=== PATIENT | male | born 1970 | race Caucasian/White ===

== ENCOUNTER 2017-10-04 16:32 | Inpatient (IN) | payer OTHER ==
[~2017-10-04] VITALS: Ht 172.7 cm; Wt 106.1 kg
[~2017-10-04 16:32] MED LIST: BENTYL20 MG PO; Norco 5-325 Ta1 EACH PO; Prilosec20 MG PO; Prilosec40 MG PO; SUCR1 PO
[2017-10-04 17:04] LABS: BASOPHILS ABSOLUTE AUTO 0.07 K/mm3 (0.00-0.23); BASOPHILS PERCENT AUTO 0 % (0-2); EOSINOPHILS ABSOLUTE AUTO 0.11 K/mm3 (0.00-0.68); EOSINOPHILS PERCENT AUTO 1 % (0-6); Hematocrit 50.1 % (37.0-53.0); Hemoglobin 17.5 g/dL (13.5-17.5); IMMATURE GRAN ABSOLUTE AUTO 0.07 K/mm3 (0.00-0.10); IMMATURE GRAN PERCENT AUTO 0 % (0-1); LYMPHOCYTES ABSOLUTE AUTO 1.76 K/mm3 (0.84-5.20); LYMPHOCYTES PERCENT AUTO 11 % (21-46); MONOCYTES ABSOLUTE AUTO 1.14 K/mm3 (0.16-1.47); MONOCYTES PERCENT AUTO 7 % (4-13); Mean Corpuscular HGB 32.7 pg (26.0-34.0); Mean Corpuscular HGB Conc 34.9 g/dL (31.5-36.5); Mean Corpuscular Volume 94 fL (80-100); Mean Platelet Volume 9.2 fL (9.1-12.4); NEUTROPHILS ABSOLUTE AUTO 12.53 K/mm3 (1.96-9.15); NEUTROPHILS PERCENT AUTO 80 % (41-73); Platelet Count 245 K/mm3 (150-400); RDW Coefficient Variation 14.2 % (11.7-14.2); RDW Standard Deviation 49.1 fL (35.1-46.3); Red Blood Cell Count 5.35 M/mm3 (4.30-5.90); White Blood Cell Count 15.68 K/mm3 (4.00-11.30)
[2017-10-04 17:26] LABS: Alanine Aminotransfer (ALT/SGP 26 U/L (12-78); Albumin, Blood 4.3 g/dL (3.4-5.0); Albumin/Globulin Ratio 1.2 (0.8-1.8); Alk Phos 92 U/L (50-136); Anion Gap 13 mmol/L (6-16); Aspartate Aminotrans (AST/SGOT 28 U/L (12-37); Bilirubin, Total 1.3 mg/dL (0.1-1.0); Blood Urea Nitrogen 10 mg/dL (8-24); CO2, Blood 21 mmol/L (21-32); Calcium, Blood 9.1 mg/dL (8.5-10.1); Chloride, Blood 103 mmol/L (98-108); Creatinine, Blood 0.91 mg/dL (0.60-1.20); Globulin, Blood 3.6 g/dL (2.2-4.0); Glomerular Filtration Rate >60 (60-); Glucose, Blood 164 mg/dL (70-99); Potassium, Blood 3.7 mmol/L (3.5-5.5); Sodium, Blood 137 mmol/L (136-145); Total Protein, Blood 7.9 g/dL (6.4-8.2); Troponin I <0.015 ng/mL (0.000-0.040)
[2017-10-05] MEDS ORDERED: Omeprazole20 M1 PO (02:53)
[2017-10-05 04:14] LABS: BASOPHILS ABSOLUTE AUTO 0.03 K/mm3 (0.00-0.23); BASOPHILS PERCENT AUTO 0 % (0-2); EOSINOPHILS PERCENT AUTO 0 % (0-6); Hemoglobin 16.3 g/dL (13.5-17.5); IMMATURE GRAN ABSOLUTE AUTO 0.11 K/mm3 (0.00-0.10); IMMATURE GRAN PERCENT AUTO 1 % (0-1); LYMPHOCYTES ABSOLUTE AUTO 0.85 K/mm3 (0.84-5.20); LYMPHOCYTES PERCENT AUTO 5 % (21-46); MONOCYTES ABSOLUTE AUTO 0.91 K/mm3 (0.16-1.47); MONOCYTES PERCENT AUTO 5 % (4-13); Mean Corpuscular HGB 32.4 pg (26.0-34.0); Mean Corpuscular Volume 95 fL (80-100); Mean Platelet Volume 9.9 fL (9.1-12.4); NEUTROPHILS ABSOLUTE AUTO 17.03 K/mm3 (1.96-9.15); NEUTROPHILS PERCENT AUTO 90 % (41-73); Platelet Count 189 K/mm3 (150-400); RDW Coefficient Variation 14.3 % (11.7-14.2); RDW Standard Deviation 49.7 fL (35.1-46.3); Red Blood Cell Count 5.03 M/mm3 (4.30-5.90); White Blood Cell Count 18.93 K/mm3 (4.00-11.30)
[2017-10-05 04:39] LABS: Anion Gap 9 mmol/L (6-16); Blood Urea Nitrogen 11 mg/dL (8-24); Bun/Creatinine Ratio 14.6 (12.0-20.0); CO2, Blood 24 mmol/L (21-32); Calcium, Blood 8.5 mg/dL (8.5-10.1); Chloride, Blood 104 mmol/L (98-108); Creatinine, Blood 0.76 mg/dL (0.60-1.20); Glomerular Filtration Rate >60 (60-); Glucose, Blood 135 mg/dL (70-99); Magnesium, Blood 1.7 mg/dL (1.6-2.4); Phosphorus, Blood 2.5 mg/dL (2.5-4.9); Potassium, Blood 3.7 mmol/L (3.5-5.5); Sodium, Blood 137 mmol/L (136-145)
[2017-10-06 04:31] LABS: Anion Gap 7 mmol/L (6-16); Blood Urea Nitrogen 7 mg/dL (8-24); Bun/Creatinine Ratio 9.7 (12.0-20.0); CO2, Blood 26 mmol/L (21-32); Calcium, Blood 8.2 mg/dL (8.5-10.1); Chloride, Blood 102 mmol/L (98-108); Creatinine, Blood 0.72 mg/dL (0.60-1.20); Glomerular Filtration Rate >60 (60-); Glucose, Blood 89 mg/dL (70-99); Magnesium, Blood 1.4 mg/dL (1.6-2.4); Potassium, Blood 3.5 mmol/L (3.5-5.5); Sodium, Blood 135 mmol/L (136-145)
[2017-10-07 06:49] LABS: BASOPHILS ABSOLUTE AUTO 0.04 K/mm3 (0.00-0.23); BASOPHILS PERCENT AUTO 0 % (0-2); EOSINOPHILS ABSOLUTE AUTO 0.09 K/mm3 (0.00-0.68); EOSINOPHILS PERCENT AUTO 1 % (0-6); Hematocrit 39.9 % (37.0-53.0); Hemoglobin 13.7 g/dL (13.5-17.5); IMMATURE GRAN ABSOLUTE AUTO 0.13 K/mm3 (0.00-0.10); IMMATURE GRAN PERCENT AUTO 1 % (0-1); LYMPHOCYTES ABSOLUTE AUTO 0.87 K/mm3 (0.84-5.20); LYMPHOCYTES PERCENT AUTO 6 % (21-46); MONOCYTES ABSOLUTE AUTO 1.12 K/mm3 (0.16-1.47); MONOCYTES PERCENT AUTO 8 % (4-13); Mean Corpuscular HGB 33.7 pg (26.0-34.0); Mean Corpuscular HGB Conc 34.3 g/dL (31.5-36.5); Mean Platelet Volume 10.1 fL (9.1-12.4); NEUTROPHILS ABSOLUTE AUTO 11.26 K/mm3 (1.96-9.15); NEUTROPHILS PERCENT AUTO 83 % (41-73); Platelet Count 151 K/mm3 (150-400); RDW Coefficient Variation 14.4 % (11.7-14.2); RDW Standard Deviation 52.2 fL (35.1-46.3); Red Blood Cell Count 4.06 M/mm3 (4.30-5.90); White Blood Cell Count 13.51 K/mm3 (4.00-11.30)
[2017-10-07 07:04] LABS: Anion Gap 6 mmol/L (6-16); Blood Urea Nitrogen 6 mg/dL (8-24); CO2, Blood 29 mmol/L (21-32); Calcium, Blood 8.6 mg/dL (8.5-10.1); Chloride, Blood 99 mmol/L (98-108); Creatinine, Blood 0.75 mg/dL (0.60-1.20); Glomerular Filtration Rate >60 (60-); Glucose, Blood 87 mg/dL (70-99); Magnesium, Blood 2.2 mg/dL (1.6-2.4); Mean Corpuscular Volume 98 fL (80-100); Potassium, Blood 3.6 mmol/L (3.5-5.5); Sodium, Blood 134 mmol/L (136-145)
[2017-10-08 06:25] LABS: Anion Gap 9 mmol/L (6-16); Blood Urea Nitrogen 10 mg/dL (8-24); Bun/Creatinine Ratio 12.5 (12.0-20.0); CO2, Blood 27 mmol/L (21-32); Chloride, Blood 100 mmol/L (98-108); Glomerular Filtration Rate >60 (60-); Glucose, Blood 122 mg/dL (70-99); Potassium, Blood 3.3 mmol/L (3.5-5.5); Sodium, Blood 136 mmol/L (136-145)
[2017-10-08] MEDS ORDERED: Percocet 5-3251 EACH PO (10:03)
== END 2017-10-08 11:19 | disposition home or self-care (01) | DRG 440 ==
LOC: ER 16:32 → PCU 16:33 → MEDS 20:45 → PCU 10-06 08:52 → MEDS 10-06 12:30 → ENPENDDIS 10-08 09:30 → MEDS 10-08 11:19
PROVIDERS: Hospitalist; Internal Medicine
DX: K85.20 Alcohol induced acute pancreatitis without necrosis or infection (principal); K21.9 Gastro-esophageal reflux disease without esophagitis; F10.10 Alcohol abuse, uncomplicated; R60.9 Edema, unspecified; R07.9 Chest pain, unspecified; E66.8 Other obesity; Z68.34 Body mass index [BMI] 34.0-34.9, adult; F17.200 Nicotine dependence, unspecified, uncomplicated; Z88.5 Allergy status to narcotic agent
CPT/HCPCS: 36415; 71046; 80048; 80053; 83690; 83735; 84100; 84484; 85025; 93005; 93010; 94762; 96374; 96375; 96376; 99285; C9113; J0360; J1200; J1650; J1940; J2270; J2405; J3010; J3475; J7030; J7120

== ENCOUNTER 2020-07-16 07:44 | Day surgery (SDC) | payer OTHER ==
[~2020-07-16] VITALS: Ht 172.7 cm; Wt 87.5 kg
[~2020-07-16 07:44] MED LIST changes: +IBUP800 PO; +ONDA4ODT MM; +Omeprazole20 M1 PO; +Percocet 5-3251 EACH PO
[2020-07-16] MEDS ORDERED: Norco 10-325 T1 EACH PO (08:15)
[2020-07-16] MEDS ORDERED: DEXA4 PO (08:17)
--- NOTE | 2020-07-16 08:34 | NUR ---
Ambulatory in Day Surgery History, Chart, Medications and Allergies reviewed before start of procedure.Lungs clear T/O to Auscultation. Patient confirms NPO status and agrees with scheduled surgery. Pre-Op teaching done. Pt verbalizes understanding.
--- NOTE | 2020-07-16 08:36 | NUR ---
AUDIBLE WHEEZES ON LEFT UPPER AND LOWER LOBES UPON AUSCULTATION
--- NOTE | 2020-07-16 12:03 | NUR ---
Patient up to Ambulate independently. Gait steady. Dressing to procedure site clean, dry, intact with no visible drainage, swelling, erythema or bruising noted. Discharge instructions reviewed with patient. Patient verbalizes understanding. Copy given to patient to take home. Patient States Post-Procedure ride home has been arranged. Discharged via wheelchair to private car for ride home.
== END 2020-07-16 12:02 | disposition home or self-care (01) ==
LOC: ORSCMMR 07:44 → ORD 09:15 → ORSCMMR 12:02
PROVIDERS: Surgery
PROC: 05HM33Z Insertion of Infusion Device into Right Internal Jugular Vein, Percutaneous Approach (ICD-10-PCS; principal; 2020-07-16 09:15)
PROC: B543ZZA Ultrasonography of Right Jugular Veins, Guidance (ICD-10-PCS; principal; 2020-07-16 09:15)
DX: C09.9 Malignant neoplasm of tonsil, unspecified (principal); C77.9 Secondary and unspecified malignant neoplasm of lymph node, unspecified; F17.210 Nicotine dependence, cigarettes, uncomplicated; Z79.899 Other long term (current) drug therapy
CPT/HCPCS: 77001; C1788; J0690; J1100; J1642; J1885; J2250; J2405; J2704; J3010; J7120

== ENCOUNTER 2020-07-22 09:46 | Day surgery (SDC) | payer OTHER ==
[~2020-07-22 09:46] MED LIST changes: +DEXA4 PO; +Norco 10-325 T1 EACH PO
== END 2020-07-22 11:15 | disposition home or self-care (01) ==
LOC: ATC 09:46
DX: C09.9 Malignant neoplasm of tonsil, unspecified (principal); C77.0 Secondary and unspecified malignant neoplasm of lymph nodes of head, face and neck; I10 Essential (primary) hypertension; F17.200 Nicotine dependence, unspecified, uncomplicated
CPT/HCPCS: 96523; J1642

== ENCOUNTER 2020-08-29 10:44 | Day surgery (SDC) | payer OTHER ==
[~2020-08-29] VITALS: Ht 172.7 cm; Wt 79.5 kg
[2020-08-29] MEDS ORDERED: NAPR220 (11:04)
== END 2020-08-29 13:13 | disposition home or self-care (01) ==
LOC: ORSCSDS 10:44
PROVIDERS: Surgery
PROC: 0DH63UZ Insertion of Feeding Device into Stomach, Percutaneous Approach (ICD-10-PCS; principal; 2020-08-29 12:00)
DX: C09.9 Malignant neoplasm of tonsil, unspecified (principal); R13.14 Dysphagia, pharyngoesophageal phase; K21.9 Gastro-esophageal reflux disease without esophagitis; K29.70 Gastritis, unspecified, without bleeding; F17.210 Nicotine dependence, cigarettes, uncomplicated; K86.1 Other chronic pancreatitis; Z79.899 Other long term (current) drug therapy
CPT/HCPCS: C1769; J2704; J3010; J7120

== ENCOUNTER 2020-12-18 16:53 | Emergency (ER) | payer OTHER | END 2020-12-18 20:05 | disposition short-term general hospital (02) | LOC: ER 16:53 | DX: C76.0 Malignant neoplasm of head, face and neck (principal); R58 Hemorrhage, not elsewhere classified; I10 Essential (primary) hypertension; F17.210 Nicotine dependence, cigarettes, uncomplicated; Z88.5 Allergy status to narcotic agent ==

== ENCOUNTER 2020-12-31 13:29 | Emergency (ER) | payer OTHER ==
[~2020-12-31] VITALS: Ht 172.7 cm; Wt 68.0 kg
[~2020-12-31 13:29] MED LIST changes: +NAPR220
== END 2020-12-31 15:56 | disposition home or self-care (01) ==
LOC: ER 13:29 → EDBD 13:29 → ER 15:56
DX: J95.03 Malfunction of tracheostomy stoma (principal); Z87.891 Personal history of nicotine dependence; Y83.3 Surgical operation with formation of external stoma as the cause of abnormal reaction of the patient, or of later complication, without mention of misadventure at the time of the procedure
CPT/HCPCS: 31720; 71046; 99285-25

== ENCOUNTER 2021-01-02 11:07 | Emergency (ER) | payer OTHER ==
[~2021-01-02] VITALS: Ht 167.6 cm; Wt 56.7 kg
[2021-01-02] MEDS ORDERED: ONDA4ODT MM (12:11)
== END 2021-01-02 12:32 | disposition home or self-care (01) ==
LOC: ER 11:07
DX: J95.03 Malfunction of tracheostomy stoma (principal); R11.2 Nausea with vomiting, unspecified; Z85.89 Personal history of malignant neoplasm of other organs and systems; Z88.5 Allergy status to narcotic agent; Y83.3 Surgical operation with formation of external stoma as the cause of abnormal reaction of the patient, or of later complication, without mention of misadventure at the time of the procedure
CPT/HCPCS: 31720; 99283-25; A9270

== ENCOUNTER 2021-01-05 06:24 | Emergency (ER) | payer OTHER ==
[~2021-01-05] VITALS: Ht 172.7 cm; Wt 68.0 kg
== END 2021-01-05 07:21 | disposition left against medical advice (07) ==
LOC: ER 06:24
DX: Z53.21 Procedure and treatment not carried out due to patient leaving prior to being seen by health care provider (principal)

== ENCOUNTER 2021-01-05 14:49 | Inpatient (IN) | payer OTHER ==
[~2021-01-05] VITALS: Ht 177.8 cm; Wt 63.5 kg
[2021-01-05 19:20] LABS: Alanine Aminotransfer (ALT/SGP 17 U/L (12-78); Albumin, Blood 2.1 g/dL (3.4-5.0); Albumin/Globulin Ratio 0.5 (0.8-1.8); Alk Phos 119 U/L (50-136); Anion Gap 7 mmol/L (6-16); Aspartate Aminotrans (AST/SGOT 21 U/L (12-37); Bilirubin, Total 0.6 mg/dL (0.1-1.0); Blood Urea Nitrogen 16 mg/dL (8-24); Bun/Creatinine Ratio 31.9 (12.0-20.0); CO2, Blood 30 mmol/L (21-32); Calcium, Blood 8.9 mg/dL (8.5-10.1); Chloride, Blood 97 mmol/L (98-108); Globulin, Blood 4.3 g/dL (2.2-4.0); Glomerular Filtration Rate >60 (60-); Glucose, Blood 109 mg/dL (70-99); Potassium, Blood 3.5 mmol/L (3.5-5.5); Sodium, Blood 134 mmol/L (136-145); Total Protein, Blood 6.4 g/dL (6.4-8.2)
[2021-01-05 20:17] LABS: Hematocrit 25.2 % (37.0-53.0); Hemoglobin 8.2 g/dL (13.5-17.5); Mean Corpuscular HGB 31.2 pg (26.0-34.0); Mean Corpuscular HGB Conc 32.5 g/dL (31.5-36.5); Mean Corpuscular Volume 96 fL (80-100); Mean Platelet Volume 9.3 fL (9.1-12.4); Platelet Count 332 K/mm3 (150-400); RDW Coefficient Variation 16.6 % (11.7-14.2); RDW Standard Deviation 57.5 fL (35.1-46.3); Red Blood Cell Count 2.63 M/mm3 (4.30-5.90); White Blood Cell Count 14.41 K/mm3 (4.00-11.30)
[2021-01-05 20:32] LABS: International Normalized Ratio 1.08; Prothrombin Time Results 11.6 Sec (9.7-11.5)
[2021-01-05 20:38] LABS: BAND PERCENT MAN 5 % (0-8); BASOPHILS PERCENT MAN 0 % (0-2); EOSINOPHILS PERCENT MAN 0 % (0-6); LYMPHOCYTES ABSOLUTE MAN 0.28 K/mm3 (0.84-5.20); LYMPHOCYTES PERCENT MAN 2 % (21-46); MONOCYTES ABSOLUTE MAN 0.86 K/mm3 (0.16-1.47); MONOCYTES PERCENT MAN 6 % (4-13); NEUTROPHILS ABSOLUTE MAN 13.25 K/mm3 (1.96-9.15); SEG NEUTROPHILS PERCENT MAN 87 % (41-73); TOTAL CELLS COUNTED 100
[2021-01-06 04:23] LABS: BASOPHILS ABSOLUTE AUTO 0.02 K/mm3 (0.00-0.23); BASOPHILS PERCENT AUTO 0 % (0-2); Hematocrit 23.3 % (37.0-53.0); Hemoglobin 7.4 g/dL (13.5-17.5); LYMPHOCYTES ABSOLUTE AUTO 0.24 K/mm3 (0.84-5.20); LYMPHOCYTES PERCENT AUTO 2 % (21-46); MONOCYTES ABSOLUTE AUTO 1.65 K/mm3 (0.16-1.47); MONOCYTES PERCENT AUTO 14 % (4-13); Mean Corpuscular HGB 30.6 pg (26.0-34.0); Mean Corpuscular HGB Conc 31.8 g/dL (31.5-36.5); Mean Corpuscular Volume 96 fL (80-100); Mean Platelet Volume 9.5 fL (9.1-12.4); Platelet Count 289 K/mm3 (150-400); RDW Coefficient Variation 16.5 % (11.7-14.2); RDW Standard Deviation 57.8 fL (35.1-46.3); Red Blood Cell Count 2.42 M/mm3 (4.30-5.90); White Blood Cell Count 12.08 K/mm3 (4.00-11.30)
[2021-01-06 04:29] LABS: EOSINOPHILS PERCENT AUTO 0 % (0-6); IMMATURE GRAN ABSOLUTE AUTO 0.07 K/mm3 (0.00-0.10); IMMATURE GRAN PERCENT AUTO 1 % (0-1); NEUTROPHILS PERCENT AUTO 84 % (41-73)
[2021-01-06 04:43] LABS: Alanine Aminotransfer (ALT/SGP 14 U/L (12-78); Albumin, Blood 1.9 g/dL (3.4-5.0); Albumin/Globulin Ratio 0.5 (0.8-1.8); Alk Phos 114 U/L (50-136); Anion Gap 7 mmol/L (6-16); Aspartate Aminotrans (AST/SGOT 19 U/L (12-37); Bilirubin, Total 0.5 mg/dL (0.1-1.0); Blood Urea Nitrogen 14 mg/dL (8-24); Bun/Creatinine Ratio 23.3 (12.0-20.0); CO2, Blood 29 mmol/L (21-32); Calcium, Blood 8.4 mg/dL (8.5-10.1); Chloride, Blood 100 mmol/L (98-108); Glomerular Filtration Rate >60 (60-); Glucose, Blood 115 mg/dL (70-99); Potassium, Blood 3.2 mmol/L (3.5-5.5); Sodium, Blood 136 mmol/L (136-145); Total Protein, Blood 5.9 g/dL (6.4-8.2)
[2021-01-06 04:58] LABS: SARS-Cov-2 (COVID-19) PCR, MMC NEGATIVE (NEGATIVE)
--- NOTE | 2021-01-06 07:20 | NUR ---
SHIFT SUMMARY PT ARRIVED TO THE FLOOR VIA WC, PLAN IS TO HAVE SURGEON REPLACE PEG TUBE AFTER IT HAD FALLEN OUT AT HOME PRIOR TO ADMISSION, PT A/O X4, NON VERBAL BUT ABLE TO WRITE HIS NEEDS AND HEAR NURSING STAFF TALK TO HIM, RECENT TRACH PUTTING OUT MODERATE AMOUNTS OF MUCUS, SUCTION AT BEDSIDE IN WHICH PT IS ABLE TO USE THOUGH HE WAS ASSISTED DURING ROUNDING WITH MUCUS HE HAD MISSED. PT TONGUE APPEARS TO BE NECROTIC AND IS SLOUGHING OFF NEAR THE FRONT HALF, THIS WAS DISCUSSED c DAY RN IT WAS NOT NOTED IN ER DOC NOTES, PER REPORT THE PATIENT IS SUPPOSED TO START HOSPICE THIS WEEK. PT SETTLED IN ROOM, ORAL CARE PROVIDED 4X THIS SHIFT. NO ACUTE EVENTS THIS SHIFT, CALL LIGHT IN REACH, REPORT GIVEN TO DAY RN.
--- NOTE | 2021-01-06 16:25 | NUR ---
PT TRASPORTED TO OR VIA GURNEY FOR PEG TUBE PLACEMENT.
--- NOTE | 2021-01-06 17:12 | NUR ---
SHIFT SUMMARY PT A&O, CALM AND COOPERATIVE c CARE, ABLE TO MAKE NEEDS KNOWN VIA WRITTEN COMMUNICATION, VSS, AND NO ACUTE CHANGES. PT REPORTS PAIN IN THE ABD T/O SHIFT, MEDICATED PER EMAR PRN. ORAL AND TRACH CARE ASSITANCE PROVIDED PRN, ABLE TO PERFORM SUCTIONING HIMSELF WELL. ORAL CARE IS PAINFUL FOR PT AND COMPLETED TOLERATED. PT CURRENTLY IN OR FOR PEG TUBE PLACEMENT.
[2021-01-07 03:54] LABS: BASOPHILS ABSOLUTE AUTO 0.02 K/mm3 (0.00-0.23); BASOPHILS PERCENT AUTO 0 % (0-2); Hematocrit 22.7 % (37.0-53.0); Hemoglobin 7.2 g/dL (13.5-17.5); LYMPHOCYTES ABSOLUTE AUTO 0.28 K/mm3 (0.84-5.20); LYMPHOCYTES PERCENT AUTO 4 % (21-46); MONOCYTES ABSOLUTE AUTO 1.01 K/mm3 (0.16-1.47); MONOCYTES PERCENT AUTO 16 % (4-13); Mean Corpuscular HGB 30.9 pg (26.0-34.0); Mean Corpuscular HGB Conc 31.7 g/dL (31.5-36.5); Mean Corpuscular Volume 97 fL (80-100); Mean Platelet Volume 9.1 fL (9.1-12.4); Platelet Count 230 K/mm3 (150-400); RDW Coefficient Variation 16.5 % (11.7-14.2); RDW Standard Deviation 58.2 fL (35.1-46.3); Red Blood Cell Count 2.33 M/mm3 (4.30-5.90); White Blood Cell Count 6.51 K/mm3 (4.00-11.30)
[2021-01-07 03:56] LABS: EOSINOPHILS PERCENT AUTO 0 % (0-6); IMMATURE GRAN ABSOLUTE AUTO 0.04 K/mm3 (0.00-0.10); IMMATURE GRAN PERCENT AUTO 1 % (0-1); NEUTROPHILS ABSOLUTE AUTO 5.16 K/mm3 (1.96-9.15); NEUTROPHILS PERCENT AUTO 79 % (41-73)
[2021-01-07 04:11] LABS: Anion Gap 7 mmol/L (6-16); Blood Urea Nitrogen 14 mg/dL (8-24); Bun/Creatinine Ratio 22.8 (12.0-20.0); CO2, Blood 28 mmol/L (21-32); Calcium, Blood 8.2 mg/dL (8.5-10.1); Chloride, Blood 103 mmol/L (98-108); Creatinine, Blood 0.61 mg/dL (0.60-1.20); Glomerular Filtration Rate >60 (60-); Glucose, Blood 97 mg/dL (70-99); Potassium, Blood 3.2 mmol/L (3.5-5.5); Sodium, Blood 138 mmol/L (136-145)
[2021-01-07 04:36] LABS: BAND PERCENT MAN 11 % (0-8); BASOPHILS PERCENT MAN 0 % (0-2); EOSINOPHILS PERCENT MAN 0 % (0-6); LYMPHOCYTES ABSOLUTE MAN 0.39 K/mm3 (0.84-5.20); LYMPHOCYTES PERCENT MAN 6 % (21-46); MONOCYTES ABSOLUTE MAN 0.52 K/mm3 (0.16-1.47); MONOCYTES PERCENT MAN 8 % (4-13); NEUTROPHILS ABSOLUTE MAN 5.59 K/mm3 (1.96-9.15); SEG NEUTROPHILS PERCENT MAN 75 % (41-73); TOTAL CELLS COUNTED 100
--- NOTE | 2021-01-07 07:43 | NUR ---
SHIFT SUMMARY POD1 PEG TUBE REPLACEMENT, A/O X4, VSS, NON-VERBAL BUT ABLE TO WRITE NEEDS AND ANSWERS TO QUESTIONS, ANSWERS QUESTIONS APPRPRIATELY. PT HAD COUGHING EPISODE IN WHICH HE WAS HAVING LARGE AMOUNTS OF MUCUS COMING OUT OF HIS TRACH, O2 WAS PROVIDED, DUE TO THE SET UP RT WAS BROUGHT IN TO ASSIST, RT SET UP HUMIDIFIER AND ASSISTED WITH SOME SUCTIONING OF TRACH. PT BREATHING IMPROVED. NO OTHER ACUTE EVENTS THIS SHIFT. CALL LIGHT IN REACH, REPORT GIVEN TO DAY RN.
--- NOTE | 2021-01-07 08:04 | NUR ---
PT REFUSES TO WEAR TRACH TUBE CONNECTER MASK, HE WILL OCCASIONALLY PLACE THE TUBE UP TO OPENING BUT REFUSES TO KEEP IN PLACE. SATS WERE AT 95% ON CHECK WITH TUBE DISCONNECTED. ATTEMPTED ORAL CARE WITH PATIENT, PT REPORTS TENDER AND DID NOT ALLOW PRODUCTIVE ORAL CARE, WOULD NOT OPEN MOUTH. PT DENIES ANY MORPHINE ALLERGY, SHOWN ON EMAR. PT IS SUCTIONING SELF AND COUGHING TO HELP CLEAR. COPIOUS MUCOUS SUCTIONED OUT.
--- NOTE | 2021-01-07 11:04 | NUR ---
PT RQSTD BE CALLED TO UPDATE. CALLED UNIT AT 10:30. THIS NURSE CALLED BACK AT 10:36 AND WAS CONNECTED WITH AN INACTIVE VOICEMAIL. THIS NURSE CALLED AGAIN AT 11:05, CALL WAS NOT PICKED UP AND WENT TO INACTIVE VOICEMAIL BOX.
--- NOTE | 2021-01-07 11:12 | NUR ---
STARTED BLOOD TRANSFUSTION AT THIS TIME. EDUCATED PATIENT ON SIGNS TO LOOK FOR REGARDING TRANSFUSION REACTION. PT REPORTS UNDERSTANDING AND NEED TO CALL IF HE FEELS ANY OF THESE SYMPTOMS. PT CURRENTLY SITTING UP IN BED TAKING A NAP AND WATCHING TV.
--- NOTE | 2021-01-07 11:27 | NUR ---
ATTEMPTED TO CALL AGAIN AT THIS TIME. NO ANSWER.
--- NOTE | 2021-01-07 11:28 | NUR ---
PT TOLERATED FIRST 15 MINUTES OF TRANSFUSION WELL. CALL LIGHT IN REACH, RATE INCREASED TO 125 ML/HR
--- NOTE | 2021-01-07 16:50 | NUR ---
PT LEFT FOR PROCEDURE AT THIS TIME. PER PT REQUEST NOTIFIED BROTHER.
--- NOTE | 2021-01-07 17:41 | NUR ---
SHIFT SUMMARY POD 1 FROM FAILED PEG TUBE PLACEMENT PT HAS HAD GAUZE AND TAPE OVER SITE. NO DRAINAGE TODAY. PT PRODUCING COPIOUS AMOUNTS OF SECRETIONS T/O SHIFT. SUCTIONING SELF. PT AGITATED AT TIMES AWAITING PROCEDURE AND R/T CURRENT PROGNOSIS. MEDICATED FOR PAIN PER EMAR. CALLS APPROPRIATLY DURING SHIFT, MAKES NEEDS MET WITH WHITEBOARD. TRACH IS IN PLACE. PT ASKED FOR INNER CANNULA TO BE PLACED, DIFFICULTY WITH SECRETION. PLAN IS FOR PEG TUBE PLACEMENT AND DISCHARGE ONCE ABLE.
--- NOTE | 2021-01-07 18:02 | NUR ---
PT REQUESTED TO DISCHARGE HOME TODAY. CALLED AND SPOKE TO PATIENTS BROTHER WHO HE REQUESTED COME PICK HIM UP. PT ALERT AND ORIENTED. SPOKE WITH DR LAO TO NOTIFY HIM OF PATIENTS WISHES. PLAN WILL BE TO DISCHARGE ONCE ORDERS ARE PLACED.
[2021-01-07] MEDS ORDERED: HYDR1TAB94 PO (18:47)
[2021-01-07] MEDS ORDERED: MORP20L PT (18:49)
--- NOTE | 2021-01-07 19:06 | NUR ---
Update 01/07/2021: Per chart review with Dr. Morgan this am, Dr. Gray will be replacing G tube. Pt. has missed his last two appointments with Dr. Bosch. We will assist in scheduling follow-up as need and arranging for transportation if indicated. HHC had been requested by hospital staff post previous discharge based on EMR notes. It does not appear that HH has sent notes to PCP. We will ensure that pt. has established with HH and add orders if needed. Pt. discharged - Dr. Gray replaced G tube. Discharging due to risk of exposure in hospital. Pt. immunocompromised. Contacted nurse Whaley to discuss discharge planning and arranging for hospital f/u visits. Pt. communicates via writing. Pt. and brother declining to schedule at this time as they have to coordinate transportation. Offer for telehealth. Patient will have family member contact me or our [facility] team tomorrow to schedule hospital f/u appointment. We will also assist in scheduling with Dr. Bosch and arranging transportation at that time. In reviewing chart, pt. has A for insurance. I am not certain that he is aware of the transportation and other additional resources available to A patients. Plan to discuss that further with pt. tomorrow and to get him in touch with someone that can assist in directing him to resources.
--- NOTE | 2021-01-07 19:27 | NUR ---
DISCHARGE PT LEFT AT 1900 VIA WHEELCHAIR WITH BROTHER AMEE. DISCHARGE INSTRUCTIONS GONE OVER WITH PATIENT. PEG TUBE PLACED PT REPORTS ABLE TO MANAGE. HE PLANS TO CALL [facility] IN THE MORNING TO ATTEMPT TO SET UP HOME HOSPICE. SCRIPT SENT HOME WITH PATIENT AND BROTHER WHO PLANS TO HELP. ALL BELONGINGS SENT WITH PATIENT, HE DENIED FURTHER NEEDS AT THIS TIME. IV REMOVED PRIOR TO DISCHARGE AND PORT HEP LOCKED BEFORE DISCHARGE.
== END 2021-01-07 19:19 | disposition hospice, home (50) | DRG 394 ==
LOC: ER 14:49 → ERHOLD 14:50 → SURS 14:50
PROVIDERS: Internal Medicine; Physician Assistant; Surgery; ADMIT Internal Medicine
PROC: 30233N1 Transfusion of Nonautologous Red Blood Cells into Peripheral Vein, Percutaneous Approach (ICD-10-PCS; principal; 2021-01-07)
PROC: 0D20XUZ Change Feeding Device in Upper Intestinal Tract, External Approach (ICD-10-PCS; 2021-01-07)
DX: K94.23 Gastrostomy malfunction (principal); C77.0 Secondary and unspecified malignant neoplasm of lymph nodes of head, face and neck; Z20.822 Contact with and (suspected) exposure to COVID-19; I10 Essential (primary) hypertension; C09.9 Malignant neoplasm of tonsil, unspecified; Z66 Do not resuscitate; F10.20 Alcohol dependence, uncomplicated; Z93.0 Tracheostomy status; Z95.0 Presence of cardiac pacemaker; Z88.6 Allergy status to analgesic agent; Z79.899 Other long term (current) drug therapy; Y83.3 Surgical operation with formation of external stoma as the cause of abnormal reaction of the patient, or of later complication, without mention of misadventure at the time of the procedure
CPT/HCPCS: 36415; 36430; 43762; 49450; 49465; 80048; 80053; 85025; 85610; 86850; 86900; 86901; 86923; 96374; 96375; 96376; 99152; 99284-25; C1769; C1887; G0378; J1642; J2250; J2270; J2370; J2405; J2704; J3010; J7030; J7050; J7120; P9016; Q9963; Q9967; U0004